=== PATIENT | female | born 1990 | race American Indian/Alaskan Native ===

== ENCOUNTER 2021-05-14 19:20 | Outpatient (CLI) | payer MEDICAID ==
[2021-05-14] MEDS ORDERED: LACTATED RINGERS 500 ML IV ONE (20:30)
[2021-05-14 23:42] VITALS: BP 96/52
== END 2021-05-15 00:28 | disposition home or self-care (01) ==
LOC: TRG 19:20 → APU 19:22 → TRG 05-15 00:28
PROVIDERS: ATTEND Obstetrics & Gynecology
DX: Z34.93 Encounter for supervision of normal pregnancy, unspecified, third trimester (principal); Z3A.28 28 weeks gestation of pregnancy
CPT/HCPCS: 59025; 85460